=== PATIENT | male | born 1965 | race African-American/Black ===

== ENCOUNTER 2018-12-06 16:26 | Day surgery (SDC) | payer BC ==
[2018-12-06] VITALS (10 sets, daily range): BP systolic 125–139; BP diastolic 82–98; PULSE 82–98; RESP 17–38; Ht 168.9 cm; Wt 76.6 kg
[~2018-12-06] VITALS: Ht 168.9 cm; Wt 76.6 kg
[2018-12-06] MEDS ORDERED: LACTATED RINGER'S 1,000 ML IV SCH (17:30)
[2018-12-06] MEDS ORDERED: LIDOCAINE 2% (MDV) 20 ML INJ ONE (17:43)
[2018-12-06] MEDS ORDERED: DEXAMETHASONE 4 MG/ML 1 ML INJ ONE (17:43)
[2018-12-06] MEDS ORDERED: BUPIVACAINE 0.5% (SDV) 30 ML INJ ONE (17:43)
[2018-12-06] MEDS ORDERED: POLYMYXIN/BACITRACIN 1L IRRIG ONE (17:43)
--- NOTE | 2018-12-06 18:32 | HPN ---
Date/Time of Note Date/Time of Note DATE: 12/06/18 TIME: 18:32 Interval H&P Admission Note Pt. seen H&P reviewed: No system changes MALORIE BLAND DPM Dec 06, 2018 18:32
--- NOTE | 2018-12-06 18:38 | PREAC ---
Date/Time of Note Date/Time of Note DATE: 12/06/18 TIME: 18:37 Anesthesia Eval and Record Evaluation Time Pre-Procedure Interview DATE: 12/06/18 TIME: 18:37 Age 53 Sex male NPO: 8 hrs Preoperative diagnosis bunion Planned procedure bunionectomy Past Medical History Past Medical History: Includes Surgery & Anesthesia Issues No known issue Meds Anticoagulation: No Beta Thom within 24 hr: No Reason Beta Thom not given: Pt. not on B-Thom No Active Prescriptions or Reported Meds Current Medications Lactated Ringer's 1,000 ml @ 20 mls/hr Q24H IV ; Start 12/06/18 at 17:30 Meds reviewed: Yes Allergies Coded Allergies: No Known Allergy (Unverified , 12/06/18) Allergies Reviewed: Yes Labs/Studies Labs Reviewed: Reviewed by anesthesiologist test: N/A Pre-procedure Exam Last vitals Vital Signs Date Temp Pulse Resp B/P (MAP) Pulse Ox O2 O2 Flow FiO2 Time Delivery Rate 12/06/18 98.3 98 18 138/83 98 Room Air 16:20 (101) Airway: Adequate mouth opening, Adequate thyromental dist Mallampati: Mallampati IV Teeth: Normal Lung: Normal Heart: Normal ASA Physical Status ASA physical status: 2 Emergency: None Pre-operative Attestations Prior to commencing anesthesia and surgery, the patient was re-evaluated, there was verification of: *The patient's identity *The results of appropriate recent lab work and preoperative vital signs *The above evaluation not changing prior to induction *Anesthetic plan, risk benefits, alternative and complications discussed with patient/family; questions answered; patient/family understands, accepts and wishes to proceed. DANUTA HOFFMAN DO Dec 06, 2018 18:38
[2018-12-06] MEDS ORDERED: ETOMIDATE 20 MG INJ ONE (18:45)
[2018-12-06] MEDS ORDERED: PROPOFOL 20 ML ONE (18:45)
[2018-12-06] MEDS ORDERED: MIDAZOLAM 1 MG/ML 2 ML INJ ONE (18:45)
[2018-12-06] MEDS ORDERED: LIDOCAINE 1% (MDV) 20 ML INJ ONE (18:45)
[2018-12-06] MEDS ORDERED: KETOROLAC 30 MG INJ ONE ×2 (18:57→19:31)
--- NOTE | 2018-12-06 19:39 | PAC ---
Date/Time of Note Date/Time of Note DATE: 12/06/18 TIME: 19:38 Post-Anesthesia Notes Post-Anesthesia Note Last documented vital signs Vital Signs Date Temp Pulse Resp B/P (MAP) Pulse Ox O2 O2 Flow FiO2 Time Delivery Rate 12/06/18 98 72 18 138/83 98 Room Air 1938 (101) Activity: WNL Respiratory function: WNL Cardiovascular function: WNL Mental status: Baseline Pain reasonably controlled: Yes Hydration appropriate: Yes Nausea/Vomiting absent: Yes DANUTA HOFFMAN DO Dec 06, 2018 19:39
[2018-12-06] MEDS ORDERED: OXYCODONE/ACETAMINOPHEN (5/325) TAB PO PRN ×2 (20:00)
[2018-12-06] MEDS ORDERED: HYDROmorphONE 1 MG/5 ML IV SYRINGE IV PRN ×2 (20:00)
[2018-12-06] MEDS ORDERED: LABETALOL HCL 20MG INJ IV PRN (20:00)
--- NOTE | 2018-12-06 21:25 | OPR ---
DATE OF OPERATION: 12/06/2018 SURGEON: Tomasa Chang D.P.M. 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 ANESTHESIOLOGIST: Dr. Frank. ANESTHESIA: Local with IV sedation. PREOPERATIVE DIAGNOSIS: Painful bunion with hallux valgus, left foot. POSTOPERATIVE DIAGNOSIS: Painful bunion with hallux valgus, left foot. OPERATION PERFORMED: Bunionectomy with osteotomy, left first metatarsal. DESCRIPTION OF PROCEDURE: The patient was brought into the operating room, placed on the table in a secure supine position. Cardiac monitoring, IV sedation, and an ankle pneumatic tourniquet were util ized for this case. DESCRIPTION OF PROCEDURE: The ankle pneumatic tourniquet was utilized for this case a Neal block was administered with 0.5% Marcaine plain mixed with 2% lidocaine plain infiltrated into the left foot i n the form of a Neal block. Upon achieving anesthesia, the foot and leg were prepped and draped in t he usual sterile manner. The ankle pneumatic tourniquet was then inflated to 250 mmHg. Procedure #1 was then performed bunionectomy with distal head osteotomy, left first metatarsal. A 4 cm dorsal me dial incision was performed along the metatarsophalangeal joint. The incision was deepened. Superfi cial bleeders were cauterized and bovied as necessary. A linear capsulotomy was performed. The caps ule was reflected dorsally and plantarly exposing the hypertrophic medial eminence. The hypertrophic medial eminence was transected with a power sagittal saw. Next, a 0.45 Thien wire was inserted from medial to lateral 1.5 cm proximal to the metatarsophalangeal joint. The axis guide was utilized with the K-wire. The Chevron osteotomy was then performed at 60 degree angles to the access guide. The osteotomy was through and through the osteotomy was then transposed laterally 3 mm capital fragm ent was fixated with 18 x 3.0 mm cannulated Dexter screw. Good fixation was noted with good stabili ty intraoperatively. The remaining bone was resected with a power sagittal saw and rasped smooth. N o sharp edges were left behind. The surgical site was irrigated with sterile saline mixed with bacit racin solution. The capsule was then reapproximated with 2-0 Vicryl simple interrupted suture. The subcutaneous tissue was closed with 4-0 Vicryl simple interrupted sutures and the skin edges were master pproximated with a running 3-0 Prolene subcuticular stitch. The dressing consisted of Xeroform gauze , 4 x 4 gauze, 1/4-inch Steri-Strips, 4 x 4 gauze, and 4-inch Kerlix with 2-inch Coban into a semi-co mpressive dressing. The immediate hyperemia was noted to the left foot all digits upon deflating the ankle tourniquet. The patient tolerated the above procedure well with vital signs stable and satisf actory. The patient will follow up 1 week postop. Dictated By: TOMASA MURRAY/WEN Conf#: [id number] DID#: [id number] CC: KAREN GONZALEZ DPM;*EndCC*
== END 2018-12-06 20:36 | disposition home or self-care (01) ==
LOC: SDS 16:26
PROVIDERS: ATTEND Podiatrist Primary Podiatric Medicine
DX: M21.612 Bunion of left foot (principal); I10 Essential (primary) hypertension
CPT/HCPCS: 28299; C1713; J1100; J1170; J1885; J2250; J3010